=== PATIENT | male | born 1990 | race Caucasian/White ===

== ENCOUNTER 2021-06-12 01:48 | Emergency (ER) | payer OTHER ==
[~2021-06-12] VITALS: Ht 172.7 cm; Wt 81.8 kg
[2021-06-12 02:12] LABS: BASO % 0.4 % (0.0-2.0); EOS # 0.2 (0.0-0.7); EOS % 2.8 % (0-4.0); GRAN # 4.4 (1.4-6.5); GRAN % 54.7 % (42.2-75.2); HEMATOCRIT 45.5 % (42.0-52.0); HEMOGLOBIN 15.8 g/dl (13.5-18.0); LYMPH # 2.8 (1.2-3.4); LYMPH % 34.7 % (20.0-51.0); MEAN CELL VOLUME 87 fl (80.0-100.0); MEAN CORPUSCULAR HEMOGLOBIN 30 pg (27.0-31.0); MEAN CORPUSCULAR HGB CONC 35 g/dl (33.0-37.0); MEAN PLATELET VOLUME 10.9 fl (7.4-10.4); MONO # 0.6 (0.1-0.6); PLATELET COUNT 208 K/mm3 (130-400); RED BLOOD COUNT 5.23 M/mm3 (4.20-5.60); REDCELL DISTRIBUTION WIDTH-CV 11.9 % (11.5-14.5)
[2021-06-12 02:25] LABS: ALANINE AMINOTRANSFERASE 20 U/L (4-49); ALBUMIN 4.4 gm/dL (3.5-5.0); ALKALINE PHOSPHATASE 59 U/L (50-136); ANION GAP 10 mmol/L (7-16); AST,SGOT 27 U/L (15-37); BILIRUBIN,TOTAL 0.5 mg/dL (0.0-1.0); BLOOD UREA NITROGEN 15 mg/dL (9-20); CALCIUM 9.2 mg/dL (8.4-10.2); CARBON DIOXIDE 25 mmol/L (22-30); CHLORIDE 106 mmol/L (98-107); CREATININE, serum 0.95 (0.66-1.25); GLUCOSE 99 mg/dL (74-106); SODIUM 141 mmol/L (137-145); TOTAL PROTEIN 7.7 gm/dL (6.4-8.2)
[2021-06-12 02:27] LABS: CREATINE KINASE 81 U/L (55-170)
[2021-06-12 02:42] LABS: TROPONIN-I < 0.012 ng/mL (0.000-0.035)
[2021-06-12 05:00] VITALS: BP 138/87; PULSE 87; TEMP 97.5
== END 2021-06-12 05:00 | disposition home or self-care (01) ==
LOC: COL.ER 01:48
PROVIDERS: Emergency Medicine
DX: R07.89 Other chest pain (principal); R53.81 Other malaise; M79.10 Myalgia, unspecified site; R06.02 Shortness of breath; Z86.16 Personal history of COVID-19
CPT/HCPCS: J7030